=== PATIENT | male | born 1965 | race Caucasian/White ===

== ENCOUNTER 2020-10-09 16:44 | Observation (INO) | payer BC ==
[~2020-10-09] VITALS: Ht 182.9 cm; Wt 98.0 kg
--- NOTE | ~2020-10-09 | EC ---
PATIENT:JULIANNE MOREAU DATE OF SERVICE: 10/09/20 SEX: M MEDICAL RECORD: [id number] DATE OF : 63 LOCATION:D.M2 D.211 AGE OF PATIENT: 55 ADMISSION DATE: 10/09/20 REFERRING PHYSICIAN: INTERPRETING PHYSICIAN: REID PABLO MD ECHOCARDIOGRAM REPORT ECHO CHARGES 4 ECHO COMPLETE Date: 10/10/20 CLINICAL DIAGNOSIS: CP ECHOCARDIOGRAPHIC MEASUREMENTS (adult normal given) AC root (d.<3.7cm) 3.2 cm LV Septum d (<1.2 cm> 1.4 cm Valve Excursion 2.1 cm LV Septum (systole) 1.9 cm Left Atria (s.<4.0cm> 4.5 cm LVPW d(<1.2cm) 1.1 cm RV (d.<2.3cm) 3.3 cm LVPW (sytole) 1.3 cm LV diastole(<5.6CM) 5.9 cm MV E-F(>70mm/sec) cm LV systole 4.2 cm LVOT Diameter 1.9 cm MV exc.(>10mm) 1.8 cm Est.ejection fraction (50-75%) % DOPPLER: LVIT cm/sec A 66 cm/sec E 56 cm/sec LA cm/sec RVSP 18 mmHg LVOT 106 cm/sec AOP1/2T m/s Asc. Ao 133 cm/sec RVOT 80 cm/sec RA cm/sec PA 118 cm/sec AV Gradient Peak 7.0 mmHg AV Mean 3.8 mmHg AV Area 2.3 cm MV Gradient Peak 2.8 mmHg MV Mean 1.2 mmHg MV Area cm COMMENTS: Retail Supervisor: Scout FOSTER Sole Assessor: 4 Dr. Pablo TAPE# Pericardial Effusion N DATE OF SERVICE: PROCEDURE: Transthoracic echocardiogram. FINDINGS: The left ventricle shows mild left ventricular hypertrophy with diastolic dysfunction. The ejection fraction is 60%. Right ventricle is mildly dilated with normal function. ECHOCARDIOGRAM REPORT [id number] JULIANNE MOREAU Left atrium is mildly dilated with normal function. The aortic valve is normal structure and function with trace to mild aortic insufficiency. The mitral valve is normal structure and function with trace mitral regurgitation. The tricuspid valve is normal structure and function and normal right ventricular systolic pressures. The right atrium has mild dilatation with normal structure and function. The pulmonic valve is normal. There is no evidence of pleural effusion. There is no pericardial effusion. There is no evidence of an ASD or VSD or vegetation. IMPRESSION: This is a normal echocardiogram with the slight exception of mild concentric left ventricular hypertrophy and diastolic dysfunction. TRANSINT:[id number] Voice Confirmation ID: [id number] DOCUMENT ID: [id number] REID PABLO MD CC: [id number] DICTATION DATE: 10/11/20 1324 CORPORATE EXECUTIVE: 10/11/202220 DIS IN 10/10/20 [facility] [address] [id number]
--- NOTE | ~2020-10-09 | ST ---
PATIENT:JULIANNE MOREAU MEDICAL RECORD: [id number] SEX: M LOCATION:D. D.211 ORDER #: ADMISSION DATE: 10/09/20 AGE OF PATIENT: 55 REFERRING PHYSICIAN: INTERPRETING PHYSICIAN: REID PABLO MD DATE OF SERVICE: 10/10/2020 LEXISCAN DIRECTED NUCLEAR CARDIAC STRESS TEST PROCEDURE IN DETAIL: The patient was brought into the nuclear lab in a stable condition. The patient was placed in the supine position on the nuclear table. The patient had at rest 11.5 mCi sestamibi injected. The patient then at stress had standard Lexiscan dosaging. The patient then subsequently had 32.4 mCi of sestamibi injected. FINDINGS: The patient had a normal ejection fraction by gated exam with an ejection fraction of 62%. SPECT imaging showed no evidence of ischemia or infarction. IMPRESSION: 1. The patient had a normal Lexiscan directed nuclear cardiac stress test. 2. The patient had normal systolic function with an ejection fraction of 62%. RECOMMENDATIONS: The patient should continue medical management and evaluation. TRANSINT:[id number] Voice Confirmation ID: [id number] DOCUMENT ID: [id number] REID PABLO MD CC: [id number] DICTATION DATE: 10/11/20 1317 DEEP SUBMERGENCE VEHICLE CREWMEMBER: 10/11/20 2241 DIS IN 10/10/20 [id number] [place] [address]
[2020-10-09] MEDS ORDERED: ELIQUIS (17:12)
[2020-10-09] MEDS ORDERED: ASPIRIN325 MG PO (17:13)
[2020-10-09] MEDS ORDERED: FENOFIBRATE (17:13)
[2020-10-09] MEDS ORDERED: SYNTHROID (17:13)
[2020-10-09 17:21] VITALS: BP 133/79
[2020-10-09 17:28] VITALS: BP 139/87
--- NOTE | 2020-10-09 17:30 | NUR ---
C/O CHEST TIGHTNESS RATES 4/10 "MAINLY ON LEFT SIDE" #1 NITRO ADMIN
[2020-10-09 17:31] LABS: BASOPHILS 0.4 % (0-2); EOSINOPHILS 1.8 % (0-7); HEMATOCRIT 44.8 % (42.0-54.0); HEMOGLOBIN 15.2 g/dL (13.5-17.5); IMMATURE GRANULOCYTES 0.2 % (0-5); LYMPHOCYTES 33.7 % (15-50); MCH 31.3 pg (26.0-34.0); MCHC 33.9 g/dL (31.0-37.0); MCV 92.2 fL (80.0-100.0); MEAN PLATELET VOLUME 9.5 fL (7.4-10.4); MONOCYTES 6.1 % (2-11); NEUTROPHIL ABS# 2.92 10x3/uL (1.78-5.38); NEUTROPHILS 57.8 % (40-80); PLATELET COUNT 267 10x3/uL (130-400); RBC 4.86 10x6/uL (4.20-6.10); WBC 5.1 10x3/uL (4.8-10.8)
--- NOTE | 2020-10-09 17:40 | NUR ---
RHYTHM CHANGE NOTED ON CM. REPEAT EKG COMPLETED. NSR 60 BPM. MIRTA MARIE AT BS
[2020-10-09 17:45] VITALS: BP 108/61
[2020-10-09 17:48] LABS: APTT 21.7 SECONDS (22.8-39.4); CALC OSMOLALITY 275 mosm/kg (275-300); CALCIUM 8.2 mg/dL (8.5-10.1); CARBON DIOXIDE 23.8 mmol/L (21.0-32.0); CHLORIDE - SERUM 106 mmol/L (98-107); CREATININE - SERUM 1.1 mg/dL (0.6-1.3); GLUCOSE 95 mg/dL (74-106); POTASSIUM - SERUM 3.7 mmol/L (3.5-5.1); PROTIME 12.2 SECONDS (11.6-15.0); SODIUM 138 mmol/L (136-145); UREA NITROGEN 13 mg/dL (7-18); eGFR NON AFRICAN AMERICAN 73 mL/min (90-120)
[2020-10-09 18:05] LABS: ALBUMIN 3.8 g/dL (3.4-5.0); ALKALINE PHOSPHATASE 70 U/L (30-120); ALT (SGPT) 64 U/L (10-68); BILIRUBIN - TOTAL 0.25 mg/dL (0.2-1.3); CKMB 3.7 U/L (0.0-3.6); CREATINE KINASE 335 UL (21-232); MAGNESIUM - SERUM 2.1 mg/dL (1.8-2.4); PROTEIN - SERUM 6.8 g/dL (6.4-8.2); TROPONIN-I < 0.017 ng/mL (0.000-0.060)
[2020-10-09 18:34] VITALS: BP 104/72
--- NOTE | 2020-10-09 19:03 | NUR ---
BS REPORT TO COLTEN RN
[2020-10-09 21:44] VITALS: BP 140/72
[2020-10-09] MEDS ORDERED: ELIQUIS5 MG PO (23:41)
[2020-10-09] MEDS ORDERED: SYNTHROID88 MCG PO (23:42)
[2020-10-09] MEDS ORDERED: FENOFIBRATE160 MG PO (23:42)
[2020-10-09 23:46] VITALS: BP 140/72; BMI 29.3
[2020-10-10 01:07] VITALS: BP 123/70
[2020-10-10 01:12] LABS: CKMB 2.9 U/L (0.0-3.6); CREATINE KINASE 263 UL (21-232)
[2020-10-10 01:22] LABS: TROPONIN-I < 0.017 ng/mL (0.000-0.060)
[2020-10-10 05:36] VITALS: BP 115/54
[2020-10-10 06:05] LABS: BASOPHILS 1.1 % (0-2); EOSINOPHILS 3.1 % (0-7); HEMATOCRIT 42.6 % (42.0-54.0); HEMOGLOBIN 14.3 g/dL (13.5-17.5); IMMATURE GRANULOCYTES 0.2 % (0-5); LYMPHOCYTE ABS# 1.85 10x3/uL (1.32-3.57); LYMPHOCYTES 41.3 % (15-50); MCH 31.2 pg (26.0-34.0); MCHC 33.6 g/dL (31.0-37.0); MCV 92.8 fL (80.0-100.0); MEAN PLATELET VOLUME 9.5 fL (7.4-10.4); MONOCYTES 7.8 % (2-11); NEUTROPHIL ABS# 2.08 10x3/uL (1.78-5.38); NEUTROPHILS 46.5 % (40-80); PLATELET COUNT 242 10x3/uL (130-400); RBC 4.59 10x6/uL (4.20-6.10); RDW 13.3 % (11.5-14.5); WBC 4.5 10x3/uL (4.8-10.8)
[2020-10-10 06:35] LABS: ALBUMIN 3.2 g/dL (3.4-5.0); ALKALINE PHOSPHATASE 60 U/L (30-120); ALT (SGPT) 56 U/L (10-68); BILIRUBIN - TOTAL 0.28 mg/dL (0.2-1.3); C-REACTIVE PROTEIN < 0.9 mg/dL (0.0-0.9); CALC OSMOLALITY 281 mosm/kg (275-300); CALCIUM 7.9 mg/dL (8.5-10.1); CARBON DIOXIDE 25.7 mmol/L (21.0-32.0); CHLORIDE - SERUM 108 mmol/L (98-107); CHOL - HDL RATIO 5.1 ratio (2.3-4.9); CHOLESTEROL, TOTAL 167 mg/dL (0-200); CKMB 2.5 U/L (0.0-3.6); CREATINE KINASE 228 UL (21-232); CREATININE - SERUM 1.1 mg/dL (0.6-1.3); GLUCOSE 109 mg/dL (74-106); HDL CHOLESTEROL 33 mg/dL (32-96); LDL CHOLESTEROL 102 mg/dL (0-100); LDL-HDL RATIO 3.1 ratio (1.5-3.5); POTASSIUM - SERUM 3.9 mmol/L (3.5-5.1); PROTEIN - SERUM 5.9 g/dL (6.4-8.2); SODIUM 141 mmol/L (136-145); TRIGLYCERIDE 160 mg/dL (30-200); TROPONIN-I < 0.017 ng/mL (0.000-0.060); UREA NITROGEN 12 mg/dL (7-18); eGFR NON AFRICAN AMERICAN 73 mL/min (90-120)
[2020-10-10 08:28] VITALS: BP 124/60
[2020-10-10 11:47] VITALS: BP 116/65
[2020-10-10 12:09] VITALS: Ht 182.9 cm; Wt 98.0 kg
[2020-10-10 13:20] LABS: CKMB 2.1 U/L (0.0-3.6); CREATINE KINASE 215 UL (21-232)
[2020-10-10 13:21] LABS: TROPONIN-I < 0.017 ng/mL (0.000-0.060)
--- NOTE | 2020-10-10 16:37 | NUR ---
IV AND TELEMTRY DCD. DC PLANS GIVEN. UNDERSTANDING VOICED.
--- NOTE | 2020-10-11 14:47 | MORECARE ---
CASE MANAGEMENT DISCHARGE SUMMARY PATIENT: JULIANNE MOREAU UNIT: [id number] ADM DATE: 10/09/20 AGE: 55 : 63 SEX: M ROOM/BED: D.2114 AUTHOR: JUSTINE,DOC PHYSICIAN: REFERRING PHYSICIAN: OSBALDO JEAN BAPTISTE MD DATE OF SERVICE: 10/11/20 Case Management Discharge Planning Summary CT Patient Name: JULIANNE MOREAU Attending MD : ROSE MARIE JEAN BAPTISTE, Medical Record: [id number] Encounter : [id number] Facility : [id number] - [facility] Admission Date : 119:22 Center Discharge Date : 10/10/[address] [place] [address] Date of : DC Plan ID : [id number] Age/Sex/Martia : 55/ M/S Printed on : 10/11/20 14:46 CT DCP Review Details Anticipated D/C: Expected LOS : 0 Case Status : NOTSTART - Initial Reviewe: [id number] - Mable Colón Initial Review: 10/11/2020 Planned Disposi: - Final Discharge: - Home or Self Care (Routine Discharge) Final Reviewer : TOMASA : Mable Colón Final Review : 10/11/2020 DCP [facility] Questions [facility] JULIANNE MOREAU MR#: [id number] /Age/Sex/Jzqxno71-Laa-77 /55/M /S Attending Physician Name: ITA [id number] Patient Account:[id number] [facility] Page -1 of 1 All edits/amendments must be made on the electronic document DICTATION DATE: 10/11/20 [address]: AMANDA 10/11/20 1445 RPT#: [id number] DC DATE:10/10/20 STATUS: [place] [address] END OF REPORT
--- NOTE | 2020-10-11 16:21 | MORECARE ---
CASE MANAGEMENT DISCHARGE SUMMARY PATIENT: JULIANNE MOREAU UNIT: [id number] ADM DATE: 10/09/20 AGE: 55 : 63 SEX: M ROOM/BED: D.2114 AUTHOR: JUSTINE,DOC PHYSICIAN: REFERRING PHYSICIAN: OSBALDO JEAN BAPTISTE MD DATE OF SERVICE: 10/11/20 Case Management Discharge Planning Summary CT Patient Name: JULIANNE MOREAU Attending MD : ROSE MARIE JEAN BAPTISTE, Medical Record: [id number] Encounter : [id number] Facility : [id number] - [facility] Admission Date : 119:22 Center Discharge Date : 10/10/[address] [place] [address] Date of : DC Plan ID : [id number] Age/Sex/Martia : 55/ M/S Printed on : 10/11/20 16:19 CT DCP Review Details Anticipated D/C: Expected LOS : 0 Case Status : NOTSTART - Initial Reviewe: [id number] - Mable Colón Initial Review: 10/11/2020 Planned Disposi: - Final Discharge: - Home or Self Care (Routine Discharge) Final Reviewer : TOMASA : Mable Colón Final Review : 10/11/2020 DCP [facility] JULIANNE MOREAU MR#: [id number] /Age/Sex/Sadwtd21-Pmd-78 /55/M /S Attending Physician Name: ITA [id number] Patient Account:[id number] [facility] Page -1 of 1 All edits/amendments must be made on the electronic document DICTATION DATE: 10/11/20 1619 TILE ROOFER: AMANDA 10/11/20 1619 RPT#: [id number] DC DATE:10/10/20 STATUS: [place] [address] END OF REPORT
== END 2020-10-10 16:38 | disposition home or self-care (01) ==
LOC: D.ER 16:44 → D.M2 19:22 → OBSVTIME 19:22 → D.M2 10-10 16:38
PROVIDERS: Emergency Medicine; ADMIT Family Medicine; ATTEND Family Medicine
DX: R07.9 Chest pain, unspecified (principal); D68.51 Activated protein C resistance; I26.99 Other pulmonary embolism without acute cor pulmonale; E03.9 Hypothyroidism, unspecified; E78.1 Pure hyperglyceridemia